=== PATIENT | female | born 1965 | race Caucasian/White ===

== ENCOUNTER 2017-10-16 05:45 | Day surgery (SDC) | payer OTHER ==
[~2017-10-16] VITALS: Ht 172.7 cm; Wt 88.5 kg
[~2017-10-16 05:45] MED LIST: ASHLYNA 0.15-01 EACH PO; CLOPIDOGREL75 MG PO; LEVOTHYROXINE125 MCG PO
--- NOTE | 2017-10-16 08:52 | NUR ---
10/16/17 0852 Alyx Mera 0895 PT GETTING DRESSED DENINES PAIN OR NAUSEA.
--- NOTE | 2017-10-17 08:56 | OR ---
[facility] [address] [place], [place] [address] Signed DATE OF OPERATION: 10/16/2017 SURGEON: Riki Paulino MD PREOPERATIVE DIAGNOSIS: External anal skin tags/hemorrhoids x3. POSTOPERATIVE DIAGNOSIS: External anal skin tags/hemorrhoids x3. PROCEDURE: Excision of external anal skin tags x3. ESTIMATED BLOOD LOSS: None. INDICATIONS: Flynn is a 52-year-old female, who has had trouble for last 4 years with external hemorrhoids and associated skin tags. She has used preparation H and orqh-wym-nhhjdeu measures without much success. She has a lot of irritation and pruritus. She was asked to see me by her primary care provider. On exam, we noticed the external hemorrhoids with associated skin tags. The skin is a little pale, but she does have good sphincter tone. Really not much in the way of internal hemorrhoids. In the office, I gave her a booklet on hernias. We looked at that together in detail. We discussed simple excision of the skin tag versus true hemorrhoidectomy. At this point, she wanted to removed the external anal skin tags and continue with conservative measures to see if that does not help. She understands the nature of that surgery along with the risks including, but not limited to bleeding, infection, scarring, change in contour of the skin, recurrent anal skin tags and/or hemorrhoids. She had expressed understanding and wished to proceed. PROCEDURE NOTE: Flynn was taken into our operating room and placed in the prone miah-knife position with appropriate padding and monitoring. She had been given a saddle block by our nurse pallet stone inserter. She was given IV sedation in addition to the saddle block by our nurse pallet stone inserter. She was then prepped and draped in the usual sterile fashion. She was given preoperative antibiotics and given heparin after the saddle block. We then examined the full circumference of the anal canal and she has some small external hemorrhoids with associated anal skin tags. We removed 3 skin tags and we cauterized the hemorrhoids just a bit. Not too much in the way of internal hemorrhoids. The mucosa in the anal canal was not inflamed. After this, dry mary ann pad was applied along with some underwear. Flynn was then rotated into the supine position onto her hospital bed and taken into recovery room in stable condition. Electronically Signed By: RIKI PAULINO MD 10/17/17 0856 PATIENT NAME: FLYNN OHARA OPERATIVE REPORT DATE OF : 69 PHYSICIAN: RIKI PAULINO MD REPORT #: [id number] REPORT IS CONFIDENTIAL AND NOT TO BE RELEASED WITHOUT AUTHORIZATION [facility] [address] [place] [id number] Signed MD ANAMARIA Correa/JAYMIEL /[id number] cc: Edgar Sims DO Electronically Signed By: RIKI PAULINO MD 10/17/17 0856 PATIENT NAME: FLYNN OHARA OPERATIVE REPORT DATE OF : 69 PHYSICIAN: RIKI PAULINO MD REPORT #: [id number] REPORT IS CONFIDENTIAL AND NOT TO BE RELEASED WITHOUT AUTHORIZATION
== END 2017-10-16 08:58 | disposition home or self-care (01) ==
LOC: DS 05:45
PROVIDERS: Colon & Rectal Surgery
PROC: 0DBQXZZ Excision of Anus, External Approach (ICD-10-PCS; principal; 2017-10-16 06:45)
DX: K64.4 Residual hemorrhoidal skin tags (principal); E03.9 Hypothyroidism, unspecified; Z88.5 Allergy status to narcotic agent; Z79.899 Other long term (current) drug therapy
CPT/HCPCS: 00902; J0694; J1644; J2250; J2704; J3010; J7120

== ENCOUNTER 2021-01-10 16:24 | Emergency (ER) | payer OTHER ==
[~2021-01-10] VITALS: Ht 172.7 cm; Wt 88.5 kg
[2021-01-10] MEDS ORDERED: HYDROCODON-ACE1 EA11 PO (18:36)
== END 2021-01-10 18:59 | disposition home or self-care (01) ==
LOC: ED 16:24
DX: M25.462 Effusion, left knee (principal); Z88.5 Allergy status to narcotic agent; Z79.899 Other long term (current) drug therapy
CPT/HCPCS: 73560; 99283-25; A9270

== ENCOUNTER 2023-09-18 07:57 | Emergency (ER) | payer OTHER ==
[~2023-09-18] VITALS: Ht 177.8 cm; Wt 91.8 kg
[~2023-09-18 07:57] MED LIST changes: +CYCLOBENZAPRINE10 MG PO; +HYDROCODON-ACE1 EA10 PO; +HYDROCODON-ACE1 EA11 PO; +IMITREX100 MG PO; +LIOTHYRONINE SO5 MCG PO
[2023-09-18 09:21] VITALS: BP 112/79
== END 2023-09-18 09:23 | disposition home or self-care (01) ==
LOC: ED 07:57
DX: M79.661 Pain in right lower leg (principal); Z88.6 Allergy status to analgesic agent; Z79.890 Hormone replacement therapy; Z79.899 Other long term (current) drug therapy
CPT/HCPCS: 93971; 99283-25

== ENCOUNTER 2023-11-24 06:30 | Day surgery (SDC) | payer OTHER ==
[~2023-11-24] VITALS: Ht 175.3 cm; Wt 90.3 kg
[~2023-11-24 06:30] MED LIST changes: +VITAMIN D325 MCG PO
[2023-11-24 06:50] VITALS: BP 127/77
--- NOTE | 2023-11-24 07:36 | NUR ---
DS ROUNDS. PT GONE FOR PROCEDURE. PROVIDED SILENT PRAYER.
--- NOTE | 2023-11-24 08:21 | NUR ---
11/24/23 0821 Alyx Dacosta 0811 PT ARRVIED TO PACU PT AWAKE AND TALKING TO RN. EDUCATION GIVEN ON PASSING GAS/AIR. 0814 O2 TUNRED OFF. PLAN OF CARE DISCUSSED.
[2023-11-24 08:33] VITALS: BP 124/83
--- NOTE | 2023-11-25 07:30 | OR ---
[facility] [address] [place], [place] [address] Signed DATE OF OPERATION: 11/24/2023 SURGEON: Riki Paulino MD PREOPERATIVE DIAGNOSES: 1. Screening. 2. Intermittent pruritus ani. 3. Intermittent rectal bleeding. 4. Intermittent constipation. 5. 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 6. Excision of three external anal skin tags in 2017. POSTOPERATIVE DIAGNOSES: 1. Long redundant colon. 2. Minimal left-sided diverticulosis. 3. Minimal internal and external hemorrhoids. 4. A 5 mm polyp at 30 cm in sigmoid colon. PROCEDURE: Colonoscopy with hot biopsy. ESTIMATED BLOOD LOSS: None. INDICATIONS: Flynn is a 58-year-old female, asked to see me for her initial screening colonoscopy. She helped her with the same process and therefore is familiar. I helped her in 2017 at age of 51 with removal of three external anal skin tags. She has had some intermittent pruritus ani with intermittent rectal bleeding and intermittent constipation. She said that is all better now. It sounds like her brush maker may have treated her for HPV around the introitus rather than the cervix. She told me there is no family history of colon cancer or polyps. I had given her a pamphlet in the office on colonoscopy. We had reviewed the nature of the test. There is risk including, but not limited to gas bloating, crampy abdominal pain, bleeding, perforation requiring surgery, and missed diagnosis. We also reviewed the written instructions for a bowel prep line by line. She remembers the bowel prep having helped her . We also reviewed the need for IV conscious sedation. She had expressed understanding and wished to proceed. DESCRIPTION OF PROCEDURE: Electronically Signed By: RIKI PAULINO MD 11/25/23 0730 PATIENT NAME: FLYNN ANTOINE OPERATIVE REPORT DATE OF : 69 REPORT #: [id number] PHYSICIAN: RIKI PAULINO MD PCP: JESSICA MARIE REPORT IS CONFIDENTIAL AND NOT TO BE RELEASED WITHOUT AUTHORIZATION [facility] [address] [place], [place] [address] Signed Flynn was taken into our endoscopy suite and placed in the left lateral decubitus position. She was given a total of 8 mg of Versed and 150 mcg of fentanyl to cover the case. We carefully examined the skin around the anus. She has very minimal circumferential external hemorrhoids. There is no evidence of any pruritus ani currently. Her skin is quite soft and supple. There are no external skin tags. She has good sphincter tone. There were no masses. The scope was then inserted and advanced under direct visualization of the camera. It took a few minutes moving the camera back and forth and using mild abdominal compression and increasing her sedation until we finally got through the long redundant colon and into the cecum itself. Her prep was quite excellent. We could easily see the appendiceal orifice and the ileocecal valve. The scope was slowly withdrawn. We took pictures throughout for photodocumentation. She does have some diverticula in the left and sigmoid colon. They are moderate in size, few in number and scattered about. We found one 5 mm polyp at 30 cm in her sigmoid colon. It was easily destroyed and biopsied completely with the help of the hot biopsy forceps. Once in the rectum, the scope had been retroflexed and she has minimal internal hemorrhoid columns. There were no internal anal skin tags that we could see. After this, the gas was suctioned out and the colonoscope removed. Flynn tolerated the procedure quite well. RECOMMENDATIONS: Flynn will follow up in my office in 7 to 14 days to review her pathology results. Riki Paulino MD [facility] /[id number] cc: MD Jessica Correa PA Copies: RIKI PAULINO MD Electronically Signed By: RIKI PAULINO MD 11/25/23 0730 PATIENT NAME: FLYNN ANTOINE OPERATIVE REPORT DATE OF : 69 REPORT #: [id number] PHYSICIAN: RIKI PAULINO MD PCP: JESSICA MARIE REPORT IS CONFIDENTIAL AND NOT TO BE RELEASED WITHOUT AUTHORIZATION [facility] [address] [place] [id number] Signed JESSICA MARIE Electronically Signed By: RIKI PAULINO MD 11/25/23 0730 PATIENT NAME: FLYNN ANTOINE OPERATIVE REPORT DATE OF : 69 REPORT #: [id number] PHYSICIAN: RIKI PAULINO MD PCP: JESSICA MARIE REPORT IS CONFIDENTIAL AND NOT TO BE RELEASED WITHOUT AUTHORIZATION
--- NOTE | 2023-11-25 12:02 | PATH ---
[facility] [address] [place], [place] [address] Signed SPECIMEN(S): A SIGMOID POLYP AT 30 CM SPECIMEN SOURCE: A. SIGMOID POLYP AT 30 CM CLINICAL HISTORY: Screening colonoscopy FINAL PATHOLOGIC DIAGNOSIS: Sigmoid polyp at 30 cm, biopsy: - Tubular adenoma. AMB MICROSCOPIC EXAMINATION: Histologic sections of all submitted blocks are examined by light microscopy. These findings, together with the gross examination, support the pathologic diagnosis. GROSS DESCRIPTION: The specimen, labeled and designated "Armando Macias, " and designated on the requisition "colon, sigmoid polypectomy at 30 cm," is received in formalin and consists of two werner soft tissue fragments measuring 0.2 to 0.3 cm, all specimens are submitted entirely in (A1). MMA (under the direct supervision of a pathologist) The Gross Description was prepared using a voice recognition system. The report was reviewed for accuracy; however, sound-alike word errors, addition and/or deletions may occur. If there is any question about this report, please contact Client Services. ADDITIONAL NOTES: Immunohistochemical and/or in situ hybridization studies if performed in this case included appropriate positive controls that reacted as expected. This test was developed and its performance characteristics determined by [facility]. It has not been cleared or approved by the U.S. Food and Drug Administration. The FDA has determined that such clearance or approval is not necessary. This test is used for clinical purposes. It should not be regarded as investigational or for research. [facility] is certified under the Clinical Laboratory Improvement Amendments of 1988 (CLIA) as qualified to perform high complexity clinical laboratory testing. PATIENT NAME: FLYNN MACIAS PATHOLOGY DATE OF : 69 REPORT #: [id number] PHYSICIAN: SHARON MANUEL PCP: DENISSE MARIE REPORT IS CONFIDENTIAL AND NOT TO BE RELEASED WITHOUT AUTHORIZATION [facility] [address] [place], [place] [address] Signed PERFORMING LABORATORY: Technical component was performed by [facility], [address] [place] [address] (CLIA# [id number]). [facility] [address] [id number] Diagnostician: Mariel Resee MD Pathologist Electronically Signed 11/25/2023 Copies: ~ PATIENT NAME: FLYNN MACIAS PATHOLOGY DATE OF : 69 REPORT #: [id number] PHYSICIAN: SHARON MANUEL PCP: DENISSE MARIE REPORT IS CONFIDENTIAL AND NOT TO BE RELEASED WITHOUT AUTHORIZATION
== END 2023-11-24 08:49 | disposition home or self-care (01) ==
LOC: OPS 06:30 → DS 06:30 → OPS 07:30
PROVIDERS: ATTEND Colon & Rectal Surgery
PROC: 0DBN8ZZ Excision of Sigmoid Colon, Via Natural or Artificial Opening Endoscopic (ICD-10-PCS; principal; 2023-11-24 07:30)
DX: Z12.11 Encounter for screening for malignant neoplasm of colon (principal); K57.30 Diverticulosis of large intestine without perforation or abscess without bleeding; K64.8 Other hemorrhoids; K64.4 Residual hemorrhoidal skin tags; D12.5 Benign neoplasm of sigmoid colon
CPT/HCPCS: 99153; G0500; J2250; J3010; J7121